=== PATIENT | male | born 1985 | race Caucasian/White ===

== ENCOUNTER 2016-09-25 18:52 | Emergency (ER) | payer MEDICAID ==
[2016-09-25 21:13] LABS: BASOPHIL % 0.4 % (0-2); PLATELET COUNT 216 x10^3mcL (130-400); RED CELL DISTRIBUTION WIDTH 12.9 % (11.5-14.5)
[2016-09-25 21:21] LABS: microscopic required? NO
[2016-09-25 21:27] LABS: CALCIUM 8.5 mg/dL (8.5-10.1); CHLORIDE SERUM 105 mmol/L (98-107); CREATININE SERUM 0.9 mg/dL (0.7-1.3); GFR1 > 60 mL/min; GLUCOSE SERUM 123 mg/dL (74-106); POTASSIUM SERUM 4.4 mmol/L (3.5-5.1); SODIUM SERUM 140 mmol/L (136-145)
[2016-09-25 21:31] LABS: ALBUMIN 3.6 g/dL (3.4-5.0); ALKALINE PHOSPHATASE 82 U/L (46-116); ALT/SGPT 258 U/L (16-63); AST/SGOT 127 U/L (15-37); BILIRUBIN TOTAL 0.3 mg/dL (0.20-1.00); TOTAL PROTEIN, SERUM 7.4 g/dL (6.4-8.2)
[2016-09-25 21:35] LABS: urine erythrocyte NEGATIVE (NEGATIVE)
[2016-09-25 21:58] VITALS: BP 127/76
== END 2016-09-25 21:58 | disposition home or self-care (01) ==
LOC: ED 18:52
PROVIDERS: Emergency Medicine
DX: I86.1 Scrotal varices (principal); I10 Essential (primary) hypertension
CPT/HCPCS: 36415; J2270; Q0092; Q0162

== ENCOUNTER 2017-02-12 00:54 | Emergency (ER) | payer MEDICAID ==
[~2017-02-12] VITALS: Ht 180.3 cm; Wt 124.9 kg
[2017-02-12 01:02] VITALS: Ht 180.3 cm; Wt 124.9 kg
[2017-02-12 04:45] VITALS: BP 130/81
== END 2017-02-12 04:50 | disposition home or self-care (01) ==
LOC: ED 00:54
DX: M54.9 Dorsalgia, unspecified (principal); I10 Essential (primary) hypertension; G51.0 Bell's palsy

== ENCOUNTER 2017-04-22 04:21 | Emergency (ER) | payer MEDICAID ==
[~2017-04-22] VITALS: Ht 180.3 cm; Wt 121.7 kg
[2017-04-22 04:23] VITALS: Ht 180.3 cm; Wt 121.7 kg
[2017-04-22 05:41] LABS: CALCIUM 8.5 mg/dL (8.5-10.1); CARBON DIOXIDE 26.5 mmol/L (21-32); CHLORIDE SERUM 105 mmol/L (98-107); CREATININE SERUM 0.9 mg/dL (0.7-1.3); GFR1 > 60 mL/min; GLUCOSE SERUM 132 mg/dL (74-106); SODIUM SERUM 138 mmol/L (136-145)
[2017-04-22 05:47] LABS: ALBUMIN 3.4 g/dL (3.4-5.0); ALKALINE PHOSPHATASE 70 U/L (46-116); ALT/SGPT 94 U/L (16-63); AST/SGOT 28 U/L (15-37); BILIRUBIN TOTAL 0.2 mg/dL (0.20-1.00); LIPASE 154 IU/L (73-393)
[2017-04-22 06:07] VITALS: BP 128/85
== END 2017-04-22 06:07 | disposition home or self-care (01) ==
LOC: ED 04:21
PROVIDERS: Emergency Medicine
DX: R10.10 Upper abdominal pain, unspecified (principal); R11.10 Vomiting, unspecified; R19.7 Diarrhea, unspecified; I10 Essential (primary) hypertension; G51.0 Bell's palsy
CPT/HCPCS: 36415; J1885

== ENCOUNTER 2018-04-13 17:18 | Emergency (ER) | payer MEDICAID ==
[~2018-04-13] VITALS: Ht 177.8 cm; Wt 121.3 kg
[2018-04-13 17:43] VITALS: Ht 177.8 cm; Wt 121.3 kg
[2018-04-13 19:23] VITALS: BP 156/101
== END 2018-04-13 19:23 | disposition home or self-care (01) ==
LOC: ED 17:18
DX: R51 Headache (principal); M25.512 Pain in left shoulder; I10 Essential (primary) hypertension; F41.9 Anxiety disorder, unspecified; V48.9XXA Unspecified car occupant injured in noncollision transport accident in traffic accident, initial encounter; Y93.89 Activity, other specified; Y92.89 Other specified places as the place of occurrence of the external cause; Y99.8 Other external cause status
CPT/HCPCS: J1885

== ENCOUNTER 2019-03-27 16:26 | Emergency (ER) | payer MEDICAID ==
[~2019-03-27] VITALS: Ht 180.3 cm; Wt 121.1 kg
[2019-03-27 16:34] VITALS: Ht 180.3 cm; Wt 121.1 kg
[2019-03-27 17:47] VITALS: BP 129/85
== END 2019-03-27 17:48 | disposition home or self-care (01) ==
LOC: ED 16:26
DX: J11.1 Influenza due to unidentified influenza virus with other respiratory manifestations (principal); I10 Essential (primary) hypertension; R53.1 Weakness; R42 Dizziness and giddiness

== ENCOUNTER 2019-06-18 00:49 | Emergency (ER) | payer MEDICAID ==
[~2019-06-18] VITALS: Ht 180.3 cm; Wt 122.5 kg
[2019-06-18 00:57] VITALS: Ht 180.3 cm; Wt 122.5 kg
[2019-06-18 03:02] LABS: BASOPHIL % 0.4 % (0-2); PLATELET COUNT 288 x10^3mcL (130-400); RED CELL DISTRIBUTION WIDTH 12.6 % (11.5-14.5)
[2019-06-18 03:03] LABS: CALCIUM 9.2 mg/dL (8.5-10.1); CARBON DIOXIDE 28.6 mmol/L (21-32); CHLORIDE SERUM 103 mmol/L (98-107); CREATININE SERUM 0.9 mg/dL (0.7-1.3); GFR1 > 60 mL/min; GLUCOSE SERUM 113 mg/dL (74-106); POTASSIUM SERUM 4.4 mmol/L (3.5-5.1); SODIUM SERUM 139 mmol/L (136-145)
[2019-06-18 03:07] LABS: ALBUMIN 3.8 g/dL (3.4-5.0); ALKALINE PHOSPHATASE 55 U/L (46-116); ALT/SGPT 56 U/L (16-63); AMYLASE 43 U/L (25-115); AST/SGOT 14 U/L (15-37); BILIRUBIN TOTAL 0.25 mg/dL (0.20-1.00); LIPASE 140 IU/L (73-393); TOTAL PROTEIN, SERUM 7.2 g/dL (6.4-8.2)
[2019-06-18 04:36] VITALS: BP 125/89
== END 2019-06-18 04:35 | disposition home or self-care (01) ==
LOC: ED 00:49
PROVIDERS: Emergency Medicine
DX: R10.9 Unspecified abdominal pain (principal)
CPT/HCPCS: 36415; J1885

== ENCOUNTER 2020-03-02 11:23 | Emergency (ER) | payer MEDICAID ==
[~2020-03-02] VITALS: Ht 180.3 cm; Wt 126.1 kg
[2020-03-02 11:35] VITALS: Ht 180.3 cm; Wt 126.1 kg
[2020-03-02 14:37] VITALS: BP 150/93
== END 2020-03-02 14:37 | disposition home or self-care (01) ==
LOC: ED 11:23
DX: I73.9 Peripheral vascular disease, unspecified (principal); K21.9 Gastro-esophageal reflux disease without esophagitis; I10 Essential (primary) hypertension; G51.0 Bell's palsy